=== PATIENT | male | born 1985 | race Caucasian/White ===

== ENCOUNTER → 2018-11-01 | Outpatient (CLI) | payer OTHER ==
--- NOTE | 2018-11-01 10:34 | XR ---
EXAMINATION TYPE: XR finger LT DATE OF EXAM: 11/01/2018 COMPARISON: None HISTORY: Pain with contusion distal phalanx left ring finger crush injury TECHNIQUE: 2 view left ring finger FINDINGS: There is an oblique fracture extending into the articular surface of the distal phalanx lef t ring finger ulnar aspect. Additionally, a nondisplaced fracture of the distal portion middle phala nx with intra-articular extension should be considered. Diffuse soft tissue swelling over the distal aspect of the left ring finger is present. IMPRESSION: 1. Displaced Fractures of the distal portion middle phalanx and proximal portion distal phalanx left ring finger each with intra-articular extension.
== END | disposition home or self-care (01) ==
LOC: RADXRYALE 10:07
PROVIDERS: ATTEND Physician Assistant Medical
DX: S62.633A Displaced fracture of distal phalanx of left middle finger, initial encounter for closed fracture (principal); S62.615A Displaced fracture of proximal phalanx of left ring finger, initial encounter for closed fracture

== ENCOUNTER → 2018-11-10 | Outpatient (CLI) | payer OTHER ==
--- NOTE | 2018-11-11 16:00 | XR ---
EXAMINATION TYPE: XR finger LT DATE OF EXAM: 11/10/2018 COMPARISON: 11/01/2018 HISTORY: Contusion ring finger. Pain. TECHNIQUE: 2 views FINDINGS: There is a 2 mm nondisplaced chip fracture of the medial base of the distal phalanx of the ring finger left hand. There is no dislocation. There is mild soft tissue swelling. There is nondispl aced 5 mm chip fracture of the lateral head of the middle phalanx of the ring finger. IMPRESSION: Nondisplaced fractures as above without change in position compared to last exam..
== END | disposition home or self-care (01) ==
LOC: RADXRYALE 16:04
PROVIDERS: ATTEND Physician Assistant
DX: S62.66 Nondisplaced fracture of distal phalanx of finger (principal); S62.65 Nondisplaced fracture of middle phalanx of finger

== ENCOUNTER → 2018-12-04 | Outpatient (CLI) | payer OTHER ==
--- NOTE | 2018-12-04 21:25 | XR ---
EXAMINATION TYPE: XR finger LT, 3 views coned down ring finger DATE OF EXAM: 12/04/2018 Comparison: 11/27/2018 Clinical History: 33-year-old male [id number] PREV FX LRF Findings: Nondisplaced oblique intra-articular fractures of the middle phalangeal head and ulnar sided distal p halangeal base are redemonstrated. The middle phalangeal lucency is less defined. The distal phalange al fracture is unchanged in appearance. No new fractures seen. Impression: Unchanged alignment of the oblique, intra-articular fractures of the fourth middle phalangeal head an d distal phalangeal base. There may be slight progressive healing of the middle phalangeal fracture. The distal phalangeal fracture appears unchanged.
== END | disposition home or self-care (01) ==
LOC: RADXRYALE 16:28
PROVIDERS: ATTEND Physician Assistant Medical
DX: S62.665A Nondisplaced fracture of distal phalanx of left ring finger, initial encounter for closed fracture (principal); S62.655A Nondisplaced fracture of middle phalanx of left ring finger, initial encounter for closed fracture

== ENCOUNTER → 2019-10-16 | Outpatient (CLI) | payer OTHER ==
--- NOTE | 2019-10-16 15:51 | XR ---
EXAMINATION TYPE: XR hand complete LT DATE OF EXAM: 10/16/2019 COMPARISON: 12/04/2018 HISTORY: Pain and laceration TECHNIQUE: Three views are submitted. FINDINGS: The osseous structures are intact. Erosive changes involving the distal phalanx of the fourth digit a ppears chronic. IMPRESSION: 1. No definite acute fracture or dislocation if symptoms persist, follow-up study in 7 to 10 days wo uld be suggested 2. Erosive changes involving the DIP joint fourth digit appears chronic and could be related to previ ous fracture at this site seen on the x-ray of 12/04/2018.
== END | disposition home or self-care (01) ==
LOC: RADXRMAIN 15:20
PROVIDERS: ATTEND Emergency Medicine
DX: M25.842 Other specified joint disorders, left hand (principal)